=== PATIENT | female | born 1955 | race Caucasian/White ===

== ENCOUNTER 2019-04-01 10:48 | Day surgery (SDC) | payer OTHER ==
[2019-03-26 11:48] VITALS: BMI 26.2
[2019-04-01] MEDS ORDERED: BUPIVACAINE HCL 0.25% 125 MG/50 ML VIAL ONE (13:05)
[2019-04-01] MEDS ORDERED: MIDAZOLAM HCL 2 MG/2 ML SINGLE DOSE VIAL ONE (13:15)
[2019-04-01] MEDS ORDERED: PROPOFOL 20 ML ONE (13:15)
[2019-04-01] MEDS ORDERED: BUPIVACAINE HCL/PF 0.25% (2.5MG/ML) 10 ML VIAL IJ ONE (13:23)
[2019-04-01] MEDS ORDERED: DEXAMETHASONE SOD PHOSPHATE 4 MG/1 ML VIAL ONE (13:38)
[2019-04-01] MEDS ORDERED: ONDANSETRON 4 MG/2 ML VIAL ONE (13:38)
[2019-04-01] MEDS ORDERED: KETOROLAC TROMETHAMINE 30 MG/1 ML VIAL ONE (13:38)
[2019-04-01 14:31] VITALS: BP 121/74; PULSE 56; TEMP 97.6
--- NOTE | 2019-04-06 16:56 | OP ---
DATE OF OPERATION: 04/01/2019 PREOPERATIVE DIAGNOSIS: Right de Quervain tenosynovitis. POSTOPERATIVE DIAGNOSIS: Right de Quervain tenosynovitis. OPERATIVE PROCEDURE: Right de Quervain 1st dorsal component release at the wrist. SURGEON: Yonatan Hernandez MD ANESTHESIA: Local with sedation. COMPLICATIONS: None. ESTIMATED BLOOD LOSS: Minimal. INDICATIONS FOR PROCEDURE: The patient is a 63-year-old female with the above finding indicated for operative treatment. Risks, benefits, and alternatives were discussed with the patient at length. Proper informed consent was obtained. DESCRIPTION OF PROCEDURE: After proper identification of patient and correct operative site, patient was brought to the operating room and placed supine on the operative table, prominences well padded. Sedation and local anesthesia were given. Right upper extremity was prepped and draped in the usual sterile fashion. Well-padded tourniquet was placed with a sterile prep. Esmarch bandage used to exsanguinate right upper extremity. Tourniquet was inflated to 250 mmHg. Transverse incision made over the 1st dorsal compartment of the right wrist. Incision was taken sharply through the skin with blunt and sharp dissection through subcutaneous tissues carefully protecting the sensory branch of the radial nerve. The 1st dorsal compartment was identified and divided along its dorsal border. Multiple slips of the tendons were noted, but there was no separate subcompartment. Synovitis was noted and debrided. Wound was irrigated and repaired with a 4-0 Monocryl suture. Steri-Strips and sterile dressings were applied. Patient was reversed from anesthesia and brought to recovery room in stable condition. She tolerated procedure well. Rose [id number]
== END 2019-04-01 14:45 | disposition home or self-care (01) ==
LOC: FASU 10:48
PROVIDERS: ATTEND Orthopaedic Surgery Hand Surgery
PROC: 0LN50ZZ Release Right Lower Arm and Wrist Tendon, Open Approach (ICD-10-PCS; principal; 2019-04-01 12:30)
DX: M65.4 Radial styloid tenosynovitis [de Quervain] (principal)

== ENCOUNTER 2019-07-22 07:30 | Day surgery (SDC) | payer OTHER ==
[2019-07-15 16:12] VITALS: BMI 26.4
[2019-07-22] MEDS ORDERED: MIDAZOLAM HCL 2 MG/2 ML SINGLE DOSE VIAL ONE (09:09)
[2019-07-22] MEDS ORDERED: PROPOFOL 20 ML ONE (09:09)
[2019-07-22] MEDS ORDERED: LIDOCAINE HCL 2% (20ML MULTI-DOSE VIAL) ONE (09:20)
[2019-07-22] MEDS ORDERED: LIDOCAINE HCL 2% (50ML VIAL) INF ONE (09:40)
[2019-07-22 10:51] VITALS: BP 110/67; PULSE 68; TEMP 9736
[2019-07-22] MEDS ORDERED: ACETAMINOPHEN 325 MG TABLET (FP) PO PRN (10:56)
[2019-07-22] MEDS ORDERED: ONDANSETRON 4 MG/2 ML VIAL IVPUSH PRN (10:56)
[2019-07-22] MEDS ORDERED: oxyCODONE HCL 5 MG TABLET PO PRN (10:56)
[2019-07-22] MEDS ORDERED: LACTATED RINGERS SOLUTION 1,000 ML IV SCH (11:00)
--- NOTE | 2019-07-24 09:09 | OP ---
DATE OF OPERATION: 07/22/2019 PREOPERATIVE DIAGNOSIS: Left de Quervain tenosynovitis. POSTOPERATIVE DIAGNOSIS: Left de Quervain tenosynovitis. OPERATIVE PROCEDURE: Left de Quervain extensor compartment release. SURGEON: Yonatan Pina MD ANESTHESIA: Local with sedation. COMPLICATIONS: None. ESTIMATED BLOOD LOSS: Minimal. INDICATION FOR PROCEDURE: The patient is a 64-year-old female with the above finding, indicated for operative treatment. Risks, benefits, and alternatives were discussed with the patient at length. Preoperative informed consent was obtained. DESCRIPTION OF PROCEDURE: After preoperative identification of the patient, correct operative site, she was brought to the operating room, placed on the table with all prominences well padded. Sedation with local anesthesia was given. Left upper extremity was prepped and draped in the usual sterile fashion. A well-padded tourniquet was placed over sterile prep. Esmarch bandage used to exsanguinate left upper extremity. Tourniquet was inflated to 250 mmHg. Transverse incision was made over the first dorsal compartment of the wrist. Incision was taken sharply through the skin. Dorsal sensory nerve was carefully protected. The first dorsal compartment was identified and found to have significant tenosynovitis proximal to the retinaculum. The retinaculum was divided, as was the remainder of the compartment. Tenosynovectomy was performed of the compartment. Tendons were found to be intact. There were no subcompartments. No subluxation occurred with wrist range of motion. Wound was repaired with 5-0 Monocryl suture. Steri-Strips, sterile dressings were applied. Patient was brought to the recovery room in stable condition. She tolerated the procedure well. YONATAN PINA M.D. [id number]
== END 2019-07-22 11:30 | disposition home or self-care (01) ==
LOC: FASU 07:30
PROVIDERS: ATTEND Orthopaedic Surgery Hand Surgery
PROC: 0LN60ZZ Release Left Lower Arm and Wrist Tendon, Open Approach (ICD-10-PCS; principal; 2019-07-22 09:49)
DX: M65.4 Radial styloid tenosynovitis [de Quervain] (principal)